=== PATIENT | female | born 1995 | race Caucasian/White ===

== ENCOUNTER 2022-12-05 14:25 | Emergency (ER) | payer OTHER ==
[~2022-12-05] VITALS: Ht 162.6 cm; Wt 64.4 kg
== END 2022-12-05 15:36 | disposition home or self-care (01) ==
LOC: ED 14:25
DX: H10.9 Unspecified conjunctivitis (principal)
CPT/HCPCS: 99283

== ENCOUNTER 2025-08-07 | Inpatient (IN) | payer OTHER ==
[~2025-08-07] VITALS: Ht 162.6 cm; Wt 78.9 kg
[2025-08-08] MEDS ORDERED: MAGNESIUM HYDROXIDE/AL HYDROX 30 ML CUP PO PRN ×2 (00:45→13:00)
[2025-08-08] MEDS ORDERED: OXYTOCIN/0.9 % SODIUM CHLORIDE 30 UNITS/500 ML BAG IV SCH (00:45)
[2025-08-08] MEDS ORDERED: miSOPROStol 25 MCG TAB PV SCH (00:45)
[2025-08-08] MEDS ORDERED: CALCIUM CARBONATE 500 MG CHEW PO PRN ×2 (00:45→13:00)
[2025-08-08] MEDS ORDERED: LACTATED RINGER'S 1,000 ML IV SCH (00:45)
[2025-08-08] MEDS ORDERED: TERBUTALINE SULFATE 1 MG/ML AMP SUB-Q PRN (00:45)
[2025-08-08] MEDS ORDERED: LACTATED RINGER'S 1,000 ML IV PRN (00:45)
[2025-08-08] MEDS ORDERED: LIDOCAINE HCL 1% 30 ML SDV INJ PRN (00:45)
[2025-08-08 00:50] LABS: MCH 30.2 PG (25.6-32.2); MCHC 34.1 g/dL (32.2-35.5); MCV 88.6 fL (79.4-94.8); RBC 3.77 M/uL (3.93-5.22)
[2025-08-08 01:00] VITALS: BP 123/88
[2025-08-08 01:19] LABS: ABO O; ANTIBODY SCREEN NEGATIVE; RH POSITIVE
[2025-08-08 02:18] LABS: AMPHETAMINES, URINE NEGATIVE (NEGATIVE); BARBITURATES, URINE NEGATIVE (NEGATIVE); BENZODIAZEPINE, URINE NEGATIVE (NEGATIVE); CANNABINOID, URINE NEGATIVE (NEGATIVE); COCAINE, URINE NEGATIVE (NEGATIVE); ECSTASY, URINE NEGATIVE (NEGATIVE); FENTANYL, URINE NEGATIVE (NEGATIVE); METHADONE, URINE NEGATIVE (NEGATIVE); OPIATES, URINE NEGATIVE (NEGATIVE); OXYCODONE, URINE NEGATIVE (NEGATIVE); PHENCYCLIDINE, URINE NEGATIVE (NEGATIVE)
[2025-08-08] MEDS ORDERED: ROPIVACAINE 0.2% 200 ML BAG ONE (08:27)
[2025-08-08] MEDS ORDERED: ROPIVACAINE 0.2% 200 ML BAG EPIDURAL SCH (09:00)
[2025-08-08] MEDS ORDERED: LACTATED RINGER'S 500 ML IV PRN (09:00)
[2025-08-08] MEDS ORDERED: ePHEDrine sulfate 5 MG/ML SYRINGE IV PRN (09:00)
[2025-08-08] MEDS ORDERED: LACTATED RINGER'S 2,000 ML IV ONE (09:00)
--- NOTE | 2025-08-08 09:25 | PR ---
[facility] [address] [facility] [place], [place] [address] Signed Progress Notes IP Datetime Report Generated by CPN: 08/08/2025 09:25 PROGRESS NOTES: [id number] Impression: Rupture of Membranes Procedures: Artificial ROM Plan: Continue Present Management VITAL SIGNS: [id number] EXAM: [id number] Dilatation: 3.0 Effacement: 90 Effacement: 80 Effacement: 50 Station: -1 Station: -1 Station: -2 Contractions: every 2 minutes MEMBRANES: [id number] Comments: Epidural in place, pt comfortable. Will evaluate contraction pattern after AROM to determine if pitocin is needed. Pt in agreement with this plan. FETUS A: [id number] FHR Baseline: 130 Variability: Moderate 6-25bpm Accelerations: 15X15 Decelerations: None FHR Category: Category I Presentation: Vertex FETUS B: [id number] Signing Physician: Curry Cano CNM Copies: ~ *Electronically Signed* 08/08/25924 CURRY CANO CNM PATIENT NAME: ROSA CODY AMADOR PROGRESS NOTE DATE OF : 95 PHYSICIAN: CURRY CANO CNM RPT #: [id number] REPORT IS CONFIDENTIAL AND NOT TO BE RELEASED WITHOUT AUTHORIZATION
[2025-08-08] MEDS ORDERED: WITCH HAZEL/GLYCERIN 1 EA PAD TOP PRN (13:00)
[2025-08-08] MEDS ORDERED: OXYTOCIN/0.9 % SODIUM CHLORIDE 500 ML IV SCH (13:00)
[2025-08-08] MEDS ORDERED: IBUPROFEN 600 MG TAB PO PRN (13:00)
[2025-08-08] MEDS ORDERED: BENZOCAINE 60 ML AEROSOL TOP PRN (13:00)
[2025-08-08] MEDS ORDERED: ACETAMINOPHEN 325 MG TAB PO PRN (13:00)
[2025-08-08] MEDS ORDERED: HYDROCORTISONE ACETATE 25 MG SUPP PR PRN (13:00)
[2025-08-08] MEDS ORDERED: LIDOCAINE 2% VISCOUS 6 ML SYR TOP ONE ×2 (13:00)
[2025-08-08] MEDS ORDERED: MAGNESIUM HYDROXIDE 30 ML UDC PO PRN (13:00)
[2025-08-08] MEDS ORDERED: SENNOSIDES/DOCUSATE 1 EA TAB PO SCH (21:00)
--- NOTE | 2025-08-09 12:42 | PR ---
[facility] [address] [facility] [place], [place] [address] Signed PP Progress Notes Datetime Report Generated by CPN: 08/09/2025 12:42 SUBJECTIVE: [id number] Pain: Within Normal Limits Nausea/Vomiting: Denies Flatus: Yes Vital Signs: [id number] Vital Signs: Reviewed; Within Normal Limits EXAM: Met EXAM: Ongoing Cardiovascular: Not Done Respiratory: Normal Abdomen/Uterus: Normal Lochia: Normal Vulva/Perineum: Normal Breasts: Not Done CVA Tenderness: Normal Extremities: Normal Incision: Not Applicable Progress: Normal IMPRESSION/PLAN/PROCEDURES: [id number] Impression: Normal Progression Plan: Discharge Progress Notes: Doing well. Pumping and feeding baby. Lochia is light. No concerns today. Desires discharge home. Signing Physician: Curry Cano CNM Copies: ~ *Electronically Signed* 08/09/25 1242 CURRY CANO CNM PATIENT NAME: ROSA CODY PROGRESS NOTE DATE OF : 95 PHYSICIAN: CURRY CANO CNM RPT #: [id number] REPORT IS CONFIDENTIAL AND NOT TO BE RELEASED WITHOUT AUTHORIZATION
== END 2025-08-09 13:45 | disposition home or self-care (01) | DRG 807 ==
LOC: FBC 08-08 00:02
PROVIDERS: ADMIT Advanced Practice Midwife; ATTEND Advanced Practice Midwife
PROC: 10E0XZZ Delivery of Products of Conception, External Approach (ICD-10-PCS; principal; 2025-08-08)
PROC: 10907ZC Drainage of Amniotic Fluid, Therapeutic from Products of Conception, Via Natural or Artificial Opening (ICD-10-PCS; 2025-08-08)
PROC: 3E0R3BZ Introduction of Anesthetic Agent into Spinal Canal, Percutaneous Approach (ICD-10-PCS; 2025-08-08)
PROC: 00HU33Z Insertion of Infusion Device into Spinal Canal, Percutaneous Approach (ICD-10-PCS; 2025-08-08)
PROC: 0UQMXZZ Repair Vulva, External Approach (ICD-10-PCS; 2025-08-08)
PROC: 3E033VJ Introduction of Other Hormone into Peripheral Vein, Percutaneous Approach (ICD-10-PCS; 2025-08-08)
DX: O99.52 Diseases of the respiratory system complicating childbirth (principal); Z37.0 Single live birth; J45.909 Unspecified asthma, uncomplicated; O70.0 First degree perineal laceration during delivery; Z3A.39 39 weeks gestation of pregnancy
CPT/HCPCS: 01960; 36415; 80307; 85027; 86850; 86900; 86901; A9270; J2795; J7121